=== PATIENT | female | born 1995 | race African-American/Black ===

== ENCOUNTER 2024-02-21 22:47 | Emergency (ER) | payer SELFPAY ==
[~2024-02-21] VITALS: Ht 170.2 cm; Wt 96.0 kg
[2024-02-21 23:07] VITALS: O2SAT 100
[2024-02-21 23:36] LABS: BASOPHILS % 0.7 % (0.0-2.0); EOSINOPHILS % 1.4 % (0.0-5.0); HEMATOCRIT. 35.7 % (36.0-48.0); HEMOGLOBIN. 11.9 g/dL (12.0-16.0); LYMPHOCYTES % 29.5 % (20.0-50.0); MEAN CORPUSCULAR HEMOGLOBIN 31.4 pg (28.0-32.0); MEAN CORPUSCULAR HGB CONC 33.4 g/dL (31.0-37.0); MEAN CORPUSCULAR VOLUME 93.9 fL (81.0-99.0); MEAN PLATELET VOLUME 8.9 fl (7.4-10.4); MONOCYTES % 8.3 % (2.0-8.0); NEUTROPHILS % 60.1 % (40.0-76.0); PLATELET 305 x1000/uL (130-400); RED BLOOD CELL COUNT 3.81 mill/uL (4.2-5.4); RED CELL DISTRIBUTION WIDTH 13.5 % (11.6-14.6); WHITE BLOOD COUNT 7.1 x1000/uL (4.5-11.0)
[2024-02-21 23:42] LABS: CARBON DIOXIDE 25 mEq/L (21-32); CHLORIDE 106 mEq/L (98-107); POTASSIUM 3.5 mEq/L (3.5-5.1); SODIUM 139 mEq/L (136-145)
[2024-02-21 23:48] LABS: CREATININE 0.8 mg/dL (0.6-1.0); GLUCOSE 115 mg/dL (70-105); UREA NITROGEN BLOOD 5 mg/dL (9-23)
[2024-02-22 00:08] LABS: CLARITY URINE CLEAR (CLEAR); COLOR URINE YELLOW (YELLOW); GLUCOSE URINE NEGATIVE (NEGATIVE); KETONES URINE NEGATIVE (NEGATIVE); LEUKOCYTE ESTERASE URINE NEGATIVE (NEGATIVE); NITRITE URINE NEGATIVE (NEGATIVE); OCCULT BLOOD URINE NEGATIVE (NEGATIVE); PH URINE 6.5 (4.5-8.0); PROTEIN URINE NEGATIVE (NEGATIVE); SPECIFIC GRAVITY URINE 1.005 (1.005-1.030); UROBILINOGEN URINE 0.2 E.U./dL (0.2-1.0)
[2024-02-22 00:13] LABS: TROPONIN I HIGH SENSITIVITY < 4 ng/L (3.0-34)
[2024-02-22] MEDS ORDERED: MECL-217 MT (04:12)
[2024-02-22 04:43] VITALS: BP 142/94; PULSE 92; RESP 18; TEMP 98.1
== END 2024-02-22 04:45 | disposition home or self-care (01) ==
LOC: ER 22:47
DX: R42 Dizziness and giddiness (principal); Z88.2 Allergy status to sulfonamides
CPT/HCPCS: 36415; 80048; 81003; 84484; 85025; 93005; 99285

== ENCOUNTER 2025-05-05 00:24 | Emergency (ER) | payer SELFPAY ==
[~2025-05-05] VITALS: Ht 172.7 cm; Wt 76.0 kg
[~2025-05-05 00:24] MED LIST: MECL-217 MT
[2025-05-05 00:34] VITALS: O2SAT 99
[2025-05-05 01:16] LABS: BASOPHILS % 0.3 % (0.0-2.0); EOSINOPHILS % 1.2 % (0.0-5.0); HEMATOCRIT. 33.1 % (36.0-48.0); HEMOGLOBIN. 10.7 g/dL (12.0-16.0); LYMPHOCYTES % 34.8 % (20.0-50.0); MEAN PLATELET VOLUME 9.1 fl (7.4-10.4); MONOCYTES % 6.6 % (2.0-8.0); NEUTROPHILS % 57.1 % (40.0-76.0); PLATELET 286 x1000/uL (130-400); RED BLOOD CELL COUNT 3.86 mill/uL (4.2-5.4); RED CELL DISTRIBUTION WIDTH 18.0 % (11.6-14.6)
[2025-05-05 01:29] LABS: CREATININE 0.7 mg/dL (0.6-1.0); UREA NITROGEN BLOOD 5 mg/dL (9-23)
[2025-05-05] MEDS: ACETAMINOPHEN 325MG TABLET PO ONE (01:57)
[2025-05-05 02:06] LABS: HCG SCREEN NEGATIVE
[2025-05-05] MEDS ORDERED: ACET-2708 MT (02:54)
[2025-05-05 03:18] VITALS: BP 116/65; PULSE 76; RESP 11; TEMP 36.9; O2SAT 100
== END 2025-05-05 03:21 | disposition home or self-care (01) ==
LOC: ER 01:22
DX: S02.5XXA Fracture of tooth (traumatic), initial encounter for closed fracture (principal); S80.01XA Contusion of right knee, initial encounter; Z79.899 Other long term (current) drug therapy; Z88.2 Allergy status to sulfonamides; W01.0XXA Fall on same level from slipping, tripping and stumbling without subsequent striking against object, initial encounter; Y93.89 Activity, other specified; Y92.89 Other specified places as the place of occurrence of the external cause; Y99.8 Other external cause status
CPT/HCPCS: 36415; 70486; 73560; 80048; 84703; 85025; 99284